=== PATIENT | female | born 1955 | race Two or more races ===

== ENCOUNTER 2020-12-30 08:00 | Outpatient (CLI) | payer OTHER | END 2020-12-30 08:15 | disposition home or self-care (01) | LOC: PPH VACUNA 08:00 | PROVIDERS: ATTEND Emergency Medicine Pediatric Emergency Medicine | DX: Z23 Encounter for immunization (principal) ==

== ENCOUNTER 2021-07-06 08:05 | Outpatient (CLI) | payer OTHER | END 2021-07-06 08:15 | disposition home or self-care (01) | LOC: PPH VACUNA 08:05 | PROVIDERS: ATTEND Emergency Medicine Pediatric Emergency Medicine | DX: Z23 Encounter for immunization (principal) ==

== ENCOUNTER 2021-12-30 13:11 | Outpatient (CLI) | payer OTHER | END 2021-12-30 13:21 | disposition home or self-care (01) | LOC: PPH VACUNA 13:11 | PROVIDERS: ATTEND Emergency Medicine Pediatric Emergency Medicine | DX: Z23 Encounter for immunization (principal) ==

== ENCOUNTER 2022-09-09 09:30 | Outpatient (CLI) | payer OTHER | END 2022-09-09 09:36 | disposition home or self-care (01) | LOC: RX STUDY 09:30 | PROVIDERS: ATTEND Internal Medicine | DX: R93.5 Abnormal findings on diagnostic imaging of other abdominal regions, including retroperitoneum (principal); K22.0 Achalasia of cardia; K20.0 Eosinophilic esophagitis ==